=== PATIENT | male | born 1975 | race Caucasian/White ===

== ENCOUNTER 2017-09-27 18:48 | Emergency (ER) | payer SELFPAY ==
[2017-09-27 19:50] VITALS: BP 106/69
[2017-09-27] MEDS ORDERED: TYLENOL ONE (19:50)
[2017-09-27] MEDS ORDERED: TYLENOL PO ONE (19:53)
[2017-09-28] MEDS ORDERED: ULTRAM ONE (01:28)
[2017-09-28] MEDS ORDERED: ULTRAM PO ONE (01:30)
== END 2017-09-28 01:48 | disposition left against medical advice (07) ==
LOC: ED 18:48
DX: M54.2 Cervicalgia (principal); V89.2XXA Person injured in unspecified motor-vehicle accident, traffic, initial encounter; Z53.21 Procedure and treatment not carried out due to patient leaving prior to being seen by health care provider; Y93.89 Activity, other specified; Y92.89 Other specified places as the place of occurrence of the external cause; Y99.8 Other external cause status